=== PATIENT | male | born 2005 | race Caucasian/White ===

== ENCOUNTER 2023-07-26 10:11 | Emergency (ER) | payer OTHER ==
[~2023-07-26] VITALS: Ht 177.8 cm; Wt 90.4 kg
[2023-07-26] MEDS: NS 1,000 ML IV ONE (11:52)
[2023-07-26] MEDS: KETOROLAC 30 MG/ML 1ML VIAL IV ONE (11:53)
[2023-07-26] MEDS ORDERED: ISOVUE-370 76% 100ML VIAL As Ordered ONE (11:59)
[2023-07-26 12:27] LABS: BASO % 0.5 % (0.0-1.0); EOS # 0.2 10^3/uL (0.0-0.5); EOS % 2.1 % (0.0-3.0); HEMATOCRIT 42.3 % (42.0-52.0); HEMOGLOBIN 14.5 g/dl (13.5-17.5); LYMPH # 2.2 10^3/uL (1.5-5.0); LYMPH % 29.7 % (24.0-44.0); MEAN CORPUSCULAR HGB CONC 34.3 g/dl (32.0-36.5); MEAN CORPUSCULAR VOLUME 84.6 fl (80.0-96.0); MONO # 0.6 10^3/uL (0.0-0.8); MONO % 7.8 % (2.0-8.0); NEUTROPHILS # 4.5 10^3/uL (1.5-8.5); NEUTROPHILS % 59.5 % (36.0-66.0); PLATELET COUNT, AUTOMATED 231 10^3/uL (150-450); WHITE BLOOD COUNT 7.5 10^3/uL (4.0-10.0)
[2023-07-26 12:51] LABS: APPEARANCE, URINE CLEAR (CLEAR); BACTERIA, URINE AUTO NEGATIVE (NEGATIVE); BILIRUBIN, URINE AUTO NEGATIVE (NEGATIVE); BLOOD, URINE BLOOD NEGATIVE (NEGATIVE); COLOR, URINE YELLOW (YELLOW); GLUCOSE, URINE (UA) AUTO NEGATIVE (NEGATIVE); KETONE, URINE AUTO NEGATIVE (NEGATIVE); LEUKOCYTE ESTERASE, URINE AUTO NEGATIVE (NEGATIVE); NITRITE, URINE AUTO NEGATIVE (NEGATIVE); PROTEIN, URINE AUTO NEGATIVE (NEGATIVE); RBC, URINE AUTO 0 /HPF (0-3); SPECIFIC GRAVITY URINE AUTO 1.028 (1.002-1.035); SQUAMOUS EPITHELIAL CELL UR AU 0 /HPF (0-6); UROBILINOGEN, URINE AUTO 0.2 mg/dL (0.0-2.0); WBC, URINE AUTO 0 /HPF (0-3)
[2023-07-26 12:54] LABS: LIPASE 28 U/L (12-53)
[2023-07-26 12:56] LABS: ALKALINE PHOSPHATASE 76 U/L (46-116); ALT/SGPT 121 U/L (7.0-40); AST/SGOT 47 U/L (<34); BILIRUBIN,DIRECT 0.2 MG/DL (<0.4); BILIRUBIN,TOTAL 0.8 MG/DL (0.3-1.2); TOTAL PROTEIN 7.3 G/DL (5.7-8.2)
[2023-07-26 15:10] LABS: HEPATITIS B CORE ANTIBODY IGM NEGATIVE (NEGATIVE); HEPATITIS C VIRUS ABY INDEX 0.04 INDEX (<0.8)
[2023-07-26 15:34] VITALS: BP 129/78; TEMP 97.4; O2SAT 99
[2023-07-26] MEDS ORDERED: MIRA3350 PO (15:41)
== END 2023-07-26 15:53 | disposition home or self-care (01) ==
LOC: M ED 10:11
DX: K59.00 Constipation, unspecified (principal); K75.81 Nonalcoholic steatohepatitis (NASH)
CPT/HCPCS: 74177; 76705; 80047; 80074; 80076; 81001; 83690; 85025; 87486; 87581; 87633; 87798; 96374; 99284; J1885; Q9967

== ENCOUNTER 2023-10-23 14:07 | Emergency (ER) | payer OTHER ==
[~2023-10-23] VITALS: Ht 177.8 cm; Wt 92.2 kg
[~2023-10-23 14:07] MED LIST: MIRA3350 PO
[2023-10-23 16:28] VITALS: BP 133/71; TEMP 97.2; O2SAT 99
== END 2023-10-23 18:55 | disposition left against medical advice (07) ==
LOC: M ED 14:07
DX: Z53.21 Procedure and treatment not carried out due to patient leaving prior to being seen by health care provider (principal)

== ENCOUNTER 2024-05-01 11:55 | Emergency (ER) | payer OTHER ==
[~2024-05-01] VITALS: Ht 177.8 cm; Wt 89.1 kg
[2024-05-01] MEDS ORDERED: THERTAB52 PO (12:08)
[2024-05-01 13:18] VITALS: BP 126/87; TEMP 98.1; O2SAT 100
== END 2024-05-01 14:58 | disposition home or self-care (01) ==
LOC: M ED 11:55
DX: J68.8 Other respiratory conditions due to chemicals, gases, fumes and vapors (principal); Z79.810 Long term (current) use of selective estrogen receptor modulators (SERMs)

== ENCOUNTER 2024-05-10 09:44 | Emergency (ER) | payer OTHER ==
[~2024-05-10] VITALS: Ht 177.8 cm; Wt 87.2 kg
[~2024-05-10 09:44] MED LIST changes: +THERTAB52 PO
[2024-05-10 12:25] LABS: BASO % 0.5 % (0.0-1.0); EOS # 0.1 10^3/uL (0.0-0.5); EOS % 1.5 % (0.0-3.0); HEMATOCRIT 46.7 % (42.0-52.0); HEMOGLOBIN 16.1 g/dl (13.5-17.5); LYMPH # 2.4 10^3/uL (1.5-5.0); LYMPH % 29.5 % (24.0-44.0); MEAN CORPUSCULAR HGB CONC 34.5 g/dl (32.0-36.5); MONO # 0.7 10^3/uL (0.0-0.8); PLATELET COUNT, AUTOMATED 248 10^3/uL (150-450); RED BLOOD COUNT 5.56 10^6/uL (4.30-6.10); WHITE BLOOD COUNT 8.3 10^3/uL (4.0-10.0)
[2024-05-10 12:46] LABS: ALBUMIN 4.1 G/DL (3.2-5.2); ALKALINE PHOSPHATASE 87 U/L (40-129); ALT/SGPT 74 U/L (7.0-40); AST/SGOT 35 U/L (<34); BILIRUBIN,TOTAL 0.9 MG/DL (0.3-1.2); BLOOD UREA NITROGEN 13 MG/DL (9-23); CALCIUM LEVEL 9.9 MG/DL (8.5-10.1); CARBON DIOXIDE LEVEL 27 MMOL/L (20-31); CHLORIDE LEVEL 102 MMOL/L (98-107); CREATININE FOR GFR 1.09 MG/DL (0.70-1.30); GLOMERULAR FILTRATION RATE > 60.0 (>60); GLUCOSE, FASTING 95 MG/DL (60-100); SODIUM LEVEL 138 MMOL/L (136-145); TOTAL PROTEIN 8.1 G/DL (5.7-8.2)
[2024-05-10 13:34] VITALS: BP 134/85; TEMP 98; O2SAT 99
== END 2024-05-10 13:35 | disposition home or self-care (01) ==
LOC: M ED 09:44
DX: R42 Dizziness and giddiness (principal); Z79.810 Long term (current) use of selective estrogen receptor modulators (SERMs)

== ENCOUNTER → 2024-09-05 | Outpatient (REF) | LOC: M PLAIMG 11:38 | PROVIDERS: ATTEND Internal Medicine | DX: R06.02 Shortness of breath (principal) ==